=== PATIENT | female | born 1965 | race Caucasian/White ===

== ENCOUNTER 2016-12-02 20:45 | Emergency (ER) | payer OTHER, BC ==
[~2016-12-02] VITALS: Ht 154.9 cm; Wt 96.0 kg
[~2016-12-02 20:45] MED LIST: HYDRTAB8 PO; LEVO750T2 PO; METO1TAB54 PO; NAPR1TAB9 PO; OXYC1TAB3 PO
[2016-12-02 20:53] VITALS: Ht 154.9 cm; Wt 96.0 kg
[2016-12-02] MEDS ORDERED: MELO7.5T5 PO (21:21)
[2016-12-02] MEDS ORDERED: CLON0.5T3 PO (21:21)
[2016-12-02] MEDS ORDERED: TRAM-10 PO (21:21)
[2016-12-02] MEDS ORDERED: OXYCODONE HCL IR 5 MG TAB (IMMEDIATE RELEASE) PO STA (21:23)
[2016-12-02] MEDS ORDERED: OXYCODONE IR HOME PACK PO ONE (21:30)
--- NOTE | 2016-12-02 22:06 | DIAGNOSTIC IMAGING REPORT ---
LEFT KNEE 3 VIEWS CLINICAL HISTORY: Fall with left knee pain. FINDINGS: AP, crosstable lateral, and sunrise views of left knee are obtained. No prior studies are available for comparison at the time of dictation. The skeletal structures are well mineralized. No fracture is seen. There are small medial marginal osteophytes. The joint spaces of the knee are well-maintained. There is no large joint effusion. The overlying soft tissues are within normal limits. IMPRESSION: Unremarkable radiographic assessment of the left knee. Electronically signed by: Dhiraj Cano M.D. 12/02/2016 10:04 PM Dictated Date/Time: 12/02/2016 10:03 PM
[2016-12-02] MEDS ORDERED: OXYC1TAB3 PO (22:14)
--- NOTE | 2016-12-02 22:15 | EMERGENCY ROOM VISIT NOTE ---
ED Visit Note First contact with patient: 21:02 CHIEF COMPLAINT: Fall on her left knee this evening HISTORY OF PRESENT ILLNESS: Patient is a 51-year-old white female who presents emergency department for evaluation of left knee pain. Patient relates that she slipped on 11/09, injuring the left knee. She was recently evaluated by orthopedics and had an MRI and diagnosed with an MCL tear. She has been wearing a hinged knee brace. She was prescribed tramadol but she states that this has not been helping. She was placed on restrictions at work. Today, patient reports that she was getting out of her vehicle at home when her left knee buckled and she fell, landing on her flexed left knee. She had immediate onset of pain and is unable to bear weight on the leg. She called orthopedics who recommended that she get an x-ray. She went to an urgent care center, and was directed to the emergency department for care due to pain management. She presently rates her pain a 10/10. She states that it is deep in the center of her knee. Pain is worse with movement and attempts at weightbearing. She has had ice on the knee since the injury. REVIEW OF SYSTEMS: Review of systems as per HPI. All other systems reviewed were negative. At least 6 systems reviewed. PMH: Electronic medical records are reviewed and summarized as above/below. See Problem List. SOCIAL HISTORY: Patient lives at home with her . She does not smoke drink alcohol socially. PHYSICAL EXAM: Vital Signs: Reviewed Nurse's notes. MENTAL STATUS: Patient is a 51-year-old white female who is awake and alert and seated in a wheelchair in moderate distress due to her knee pain. KNEE: Examination of the left knee does not note any significant soft tissue swelling. Skin is intact without abrasions or bruising. She has tenderness to palpation along the medial aspect of the knee and over the medial joint line. No significant knee joint effusion is palpable. She is able to extend fully and flex greater than 90. EMERGENCY DEPARTMENT COURSE: Patient was medicated with oxycodone 10 mg orally. X-rays of the left knee were obtained and did not note acute fracture. The patient was fitted with a walker. She was given oxycodone to use for pain. She was encouraged to follow-up with her orthopedic surgeon for further care and evaluation of her ongoing knee injury, in the setting of the ligamentous injury now with a fall on the knee. She was discharged home with her mother driving. Differential diagnosis includes fracture, contusion, sprain, dislocation, meniscal or ligamentous injury, among others. LEFT KNEE 3 VIEWS CLINICAL HISTORY: Fall with left knee pain. FINDINGS: AP, crosstable lateral, and sunrise views of left knee are obtained. No prior studies are available for comparison at the time of dictation. The skeletal structures are well mineralized. No fracture is seen. There are small medial marginal osteophytes. The joint spaces of the knee are well-maintained. There is no large joint effusion. The overlying soft tissues are within normal limits. IMPRESSION: Unremarkable radiographic assessment of the left knee. Problem List Surgical Problems: (1) History of lumbar laminectomy Status: Resolved Current/Historical Medications Scheduled Meloxicam (Mobic), 7.5 MG PO DAILY Naproxen (Aleve), 440 MG PO QD@08 Scheduled PRN Clonazepam (Klonopin), 0.5 MG PO DAILY PRN for Anxiety/Agitation Oxycodone Ir (Roxicodone Ir), 1-2 TAB PO Q4H PRN for Severe Pain Tramadol (Ultram), 50 MG PO Q4H PRN for Pain Allergies Coded Allergies: No Known Allergies (Unverified , 12/02/16) Vital Signs Date Time Temp Pulse Resp B/P Pulse Ox O2 Delivery O2 Flow Rate FiO2 12/02/16 22:23 36.6 71 18 132/89 97 12/02/16 22:22 71 18 132/89 97 Room Air 12/02/16 20:53 36.6 71 18 149/92 97 Room Air Medications Administered Medications (Trade) Dose Ordered Sig/Yarely Route Start Time Stop Time Status Last Admin Dose Admin Oxycodone HCl (Roxicodone Immediate Rel Tab) 10 mg NOW STAT PO 12/02/16 21:23 12/02/16 21:24 DC 12/02/16 21:39 10 MG Oxycodone HCl (Roxicodone Immediate Rel 5MG Home Pack) 1 homepack UD ONCE PO 12/02/16 21:30 12/02/16 21:31 DC 12/02/16 21:40 1 HOMEPACK Departure Information Impression Primary Impression: Left knee pain Prescriptions Oxycodone Ir (Roxicodone Ir) 5 Mg Tab 1-2 TAB PO Q4H Y for Severe Pain, #25 TAB For Initial Treatment Prov: Ange Herrmann PA 12/02/16 Referrals Marc Garza M.D. (PCP) Patient Instructions My [facility] Additional Instructions DO NOT drive, drink alcohol, operate machinery, or perform dangerous activities today. You were given medications in the ER that can affect your ability to safely function or operate a vehicle. Oxycodone (OxyIR) 5mg: Take 1-2 pills every four hours for breakthrough pain. Avoid alcohol, operating machinery or dangerous equipment, working on ladders or roofs, DRIVING, or situations where being under the influence may be dangerous. It is recommended to use an gacg-mmy-slyhnfx stool softener such as Colace, 100mg twice daily while taking this medication to avoid constipation. Ibuprofen(Motrin, Advil) may be used for fever or pain. Use 600mg every six hours as needed. Take with food. Avoid using more than 2400mg in a 24 hour period. Do not use 2400mg per day for more than three consecutive days without physician direction. Prolonged inappropriate use can lead to stomach upset or ulcers. This medication can be taken if you need to drive, work, or perform activities which may be dangerous when taking narcotic pain medication. (AND/OR) Acetaminophen(Tylenol) may be used for fever or pain. Use 1000mg every six hours as needed. Avoid using more than 3000mg in a 24 hour period. This medication can be taken if you need to drive, work, or perform activities which may be dangerous when taking narcotic pain medication. Ice compresses for 20 minutes at a time four times daily for 2-3 days. Use the walker as instructed. Rest and elevate your injury. Continue current medications. Return to the ER immediately for any numbness, tingling, severe pain, extreme swelling in the extremity or as needed. Follow-up with Dr. Sierra next week.
[2016-12-02 22:23] VITALS: BP 132/89; PULSE 71; TEMP 36.6; O2SAT 97
[2017-03-22] MEDS ORDERED: ACET5TAB2 PO (11:32)
[2017-03-22] MEDS ORDERED: DICL-201 PO (11:32)
[2017-03-28] MEDS ORDERED: TRAM-10 PO (10:46)
== END 2016-12-02 22:34 | disposition home or self-care (01) ==
LOC: C.EDB 20:46 → C.EDD 22:34
DX: M25.562 Pain in left knee (principal); W19.XXXA Unspecified fall, initial encounter

== ENCOUNTER → 2016-12-08 | Outpatient (CLI) | payer OTHER, BC ==
[~2016-12-08] MED LIST changes: +ACET5TAB2 PO; +CLON0.5T3 PO; +DICL-201 PO; -HYDRTAB8 PO; -LEVO750T2 PO; +MELO7.5T5 PO; -METO1TAB54 PO; +TRAM-10 PO
--- NOTE | 2016-12-08 17:34 | DIAGNOSTIC IMAGING REPORT ---
LEFT KNEE MRI HISTORY: Left medial knee pain. COMPARISON STUDY: Left knee 12/02/2016. TECHNIQUE: Multiplanar multisequence MRI of the left knee was performed according to standard department protocol without the use of contrast. FINDINGS: Menisci: The lateral meniscus is intact. Abnormal signal within the body and posterior horn of the medial meniscus which does not clearly extend to the articular surface. Therefore, this favors degeneration. However, there is a complex tear at the posterior root of the medial meniscus. This is best seen on coronal image 20. Ligaments: The anterior and posterior cruciate ligaments are intact. The medial and lateral collateral ligaments are normal in appearance. Extensor mechanism: The quadriceps tendon and patellar ligament are intact. Articular cartilage and bone: No fracture or dislocation. Mild/moderate cartilage thinning/irregularity at the trochlea. Remaining cartilage spaces are maintained. Joint effusion: None. Soft tissues: Mild subcutaneous edema. Tiny popliteal cyst. IMPRESSION: 1. Complex tear at the posterior root of the medial meniscus. Abnormal signal within the body and posterior horn of the medial meniscus which does not clearly extend to the articular surface. Therefore, this favors degeneration rather than a tear. 2. Mild to moderate cartilage thinning/irregularity at the trochlea. Electronically signed by: Jose Snow M.D. 12/08/2016 5:32 PM Dictated Date/Time: 12/08/2016 5:29 PM
== END | disposition home or self-care (01) ==
LOC: C.MRIBC 16:13
PROVIDERS: ATTEND Orthopaedic Surgery
DX: M25.562 Pain in left knee (principal); S83.232A Complex tear of medial meniscus, current injury, left knee, initial encounter; X58.XXXA Exposure to other specified factors, initial encounter; M24.10 Other articular cartilage disorders, unspecified site

== ENCOUNTER → 2017-02-16 | Outpatient (CLI) | payer OTHER, BC ==
--- NOTE | 2017-02-16 11:15 | DIAGNOSTIC IMAGING REPORT ---
MRI left knee LEFT LOWER EXT JOINT WITHOUT CLINICAL HISTORY: LEFT KNEE PAIN pain TECHNIQUE: MRI multi axial acquisition COMPARISON STUDY: 12/16/2016 FINDINGS: There is no evidence for an interval operative procedure. There is a slight increase in edema surrounding the medial to lesser extent lateral compartments. The tear appears described posterior horn medial meniscus now shows apical truncation. A small loose body is present. Continued be a component of matrix deterioration of the meniscal substance. The lateral meniscus remains unremarkable in overall configuration. The cruciate ligaments are intact. There is at least a small partial tear of the medial collateral ligament complex. There is a component of mild chondromalacia patella. This is similar compared to the prior study. No significant loss of articular services present. There is moderate degenerative maceration of the meniscal matrix. The IMPRESSION: 1. Persistent tear posterior horn medial meniscus now showing evidence for apical truncation and a small periapical loose body. The bulk of the intrameniscal tear of the posterior horn medial meniscus is improved 2. Mild increase in surrounding soft tissue edematous change. 3. Small partial tear and/or sprain medial collateral ligament 4. Study otherwise remains unremarkable. Electronically signed by: Garrick Maravilla M.D. 02/16/2017 11:14 AM Dictated Date/Time: 02/16/2017 11:06 AM
== END | disposition home or self-care (01) ==
LOC: C.MRIBC 09:26
PROVIDERS: ATTEND Orthopaedic Surgery
DX: M23.42 Loose body in knee, left knee (principal); S83.412A Sprain of medial collateral ligament of left knee, initial encounter; S83.242A Other tear of medial meniscus, current injury, left knee, initial encounter; X58.XXXA Exposure to other specified factors, initial encounter

== ENCOUNTER → 2017-03-20 | Outpatient (CLI) | payer OTHER, BC | END | disposition home or self-care (01) | LOC: C.CPL 16:47 | PROVIDERS: ATTEND Orthopaedic Surgery | DX: Z01.810 Encounter for preprocedural cardiovascular examination (principal); S83.207A Unspecified tear of unspecified meniscus, current injury, left knee, initial encounter; X58.XXXA Exposure to other specified factors, initial encounter ==

== ENCOUNTER → 2017-03-28 | Day surgery (SDC) | payer OTHER, BC ==
[2017-03-22 11:32] VITALS: Ht 156.8 cm; Wt 90.9 kg
[~2017-03-28] VITALS: Ht 156.8 cm; Wt 90.9 kg
[~2017-03-28] MED LIST changes: +ATROPINE SULFATE 0.1 MG/ML 5ML SYR IV PRN; +BUPIVACAINE 0.5 % 5 MG/1 ML MPF 30ML VIAL ONE; +CEFAZOLIN 2000 MG/60 ML D5W IV SCH; +ESMOLOL HCL 10 MG/ML 10 ML VIAL ONE; +EpHEDrine SULFATE INJ 50 MG/ML AMP IV PRN; +EpINEphrine INJ 1MG/ML AMP 1 MG/ML AMP ONE; +FENTANYL CITRATE INJ 50 MCG/1 ML 2 ML VIAL ONE; +FLUMAZENIL 0.1 MG/1 ML 10 ML VIAL IV PRN; +HYDROmorphone INJ 0.5 MG/0.5 ML SYR ONE; +HYDROmorphone INJ 1 MG/ML SYR IV ONE; +HYDROmorphone INJ 1 MG/ML SYR ONE; +KETOROLAC TROMETHAMINE 30 MG/ML VIAL ONE; +LABETALOL HCL IV 5 MG/ML 20ML IV PRN; +LIDOCAINE HCL 2% 2 ML VIAL (20MG/ML) ONE; -MELO7.5T5 PO; +MEPERIDINE HCL 50 MG/ML CARP IV ONE; +MIDAZOLAM HCL 1 MG/ML 2ML VIAL ONE; +NALOXONE HCL 0.4 MG/1 ML VIAL/CARP IV PRN; -NAPR1TAB9 PO; +NURSING VERBAL MED ORDER ONE; +ONDANSETRON INJ 2 MG/ML 2 ML VIAL IV PRN; +ONDANSETRON INJ 2 MG/ML 2 ML VIAL ONE; -OXYC1TAB3 PO; +OXYCODONE/ACETAMINOPHEN 5-325 TAB PO PRN; +PHENYLEPHRINE 100MCG/ML 5ML SYR IV PRN; +PROPOFOL IV EMULSION 10 MG/ML 20 ML VIAL IV ONE; +ROPIVACAINE 0.5% 5 MG/ML 30 ML VIAL ONE; +SODIUM CHLORIDE 0.9% 1000ML 1,000 ML IV SCH
--- NOTE | 2017-03-28 08:59 | History & Physical Bridge - SC ---
H&P Re-Evaluation Bridge Note: I have examined the patient, reviewed the History & Physical and in the interval since the performance of the History & Physical I have noted the following changes of clinical significance: No changes noted
[2017-03-28] MEDS: LACTATED RINGER'S 1000ML 1,000 ML IV SCH ×2 (09:05→13:14)
--- NOTE | 2017-03-28 10:32 | [facility] Post Operative Brief Note ---
Immediate Operative Summary Operative Date Mar 28, 2017. Pre-Operative Diagnosis Left Current Tear Medial Cartilageand Meniscus Post-Operative Diagnosis same Procedure(s) Performed Left Knee Arthroscopy, Partial Medial Meniscectomy, Chondroplasty Medial Femoral Condyle Surgeon Dr. Shayna Sierra Pest Control Technician Surgeon(s) Nader Aguilera PA-C Estimated Blood Loss 5cc Findings DJD MFC GRADE II-III Specimens none Anesthesia LMA
--- NOTE | 2017-03-28 10:49 | Discharge Instructions-SurgCtr ---
Discharge Instructions Date of Service Mar 28, 2017. Visit Reason for Visit: Left Current Tear Medial Cartilage &/Or Meniscus Discharge Discharge Diagnosis / Problem: SAME ABOVE Discharge Goals Goal(s): Decrease discomfort, Improve function Activity Recommendations Activity Limitations: as noted below Lifting Limitations: gradually increase as tolerated Exercise/Sports Limitations: until after follow-up appointment Shower/Bathe: tomorrow Anesthesia . Post Anesthesia Instructions: If you have had General Anesthesia or IV Sedation: * Do not drive today. * Resume driving when surgeon permits. * Do not make important decisions or sign legal documents today. * Call surgeon for: 1. Temperature elevations greater than 101 degrees F. 2. Uncontrollable pain. 3. Excessive bleeding. 4. Persistent nausea and vomiting. 5. Medication intolerance (nausea, vomiting or rash). * For nausea and vomiting use only clear liquids such as: tea, soda, bouillon until nausea subsides, then gradually increase diet as tolerated. * If you have any concerns or questions, call your surgeon's office. If physician is unavailable and it is an emergency, call 911 or go to the nearest emergency room. . Instructions / Follow-Up Instructions / Follow-Up MEDICATIONS: * Resume previous medications unless instructed otherwise by your surgeon. * Always take pain medication on a full stomach or with food to avoid upset stomach. * Do not drink alcohol or drive while taking narcotics. * Ibuprofen or Tylenol may be taken if narcotic not needed. SPECIAL CARE INSTRUCTIONS: __ None _X_ Keep extremity elevated and iced x 48 hours; apply ice 20-30 minutes 8-10 times/day. May remove at night. __ Crutches __ May discard when able __ Brace/Post-op shoe __ 24 hrs/day __ Remove at night _X_ Dressing __ Maintain until seen in office, may shower with plastic over site _X_ Remove dressings in 24-48 hours and then may shower _X_ Cover incisions with band-aids after showering __ Do not remove steri-strips Call physician if chills or temperature rises above 102 degrees or pain unrelieved by prescribed pain medications. Office [phone] Diet Recommendations Home Diet: resume previous diet Procedures Procedures Performed: Left Knee Arthroscopy, Partial Medial Meniscectomy, Chondroplasty Medial Femoral Condyle Pending Studies Studies pending at discharge: no Medical Emergencies . Who to Call and When: Medical Emergencies: If at any time you feel your situation is an emergency, please call 911 immediately. . Non-Emergent Contact Non-Emergency issues call your: Primary Care Provider . . "Provider Documentation" section prepared by Nader Aguilera. .
[2017-03-28] MEDS: FENTANYL CITRATE INJ 50 MCG/1 ML 2 ML VIAL IV PRN ×3 (11:00→11:16)
[2017-03-28] MEDS: HYDROmorphone INJ 2 MG/ML SYR/VIAL IV PRN ×2 (11:24→12:29)
[2017-03-28] MEDS: MEPERIDINE HCL 25 MG/ML CARP IV PRN ×2 (11:38→11:44)
--- NOTE | 2017-03-28 12:37 | OPERATIVE REPORT ---
DATE OF OPERATION: 03/28/2017 PREOPERATIVE DIAGNOSES: 1. Medial meniscus tear left knee. 2. Degenerative joint disease grade 2-3 medial femoral condyle. POSTOPERATIVE DIAGNOSIS: Same with diffuse synovitis, cyst intercondylar notch left knee and plica bands patellofemoral joint. PROCEDURES: 1. Left knee arthroscopy. 2. Partial medial meniscectomy. 3. Chondroplasty medial femoral condyle. 4. Removal intercondylar notch cyst and plica band patellofemoral joint. . SURGEON: Dr. Sierra. SENIOR WEB ANALYST: Nader Aguilera PA-C. ANESTHESIOLOGIST: Dr. Corrales. ANESTHESIA: LMA. DRAINS: None. COMPLICATIONS: None. CONDITION: The patient tolerated the procedure well and returned to the recovery room in apparent satisfactory condition. INDICATIONS FOR SURGERY: Yasmine is a 51-year-old female who has had a painful left knee secondary to workers comp injury. We felt at this time we had 2 issues, meniscus tear and also DJD of her knee. Went over treatment options and elected to go ahead and proceed with knee arthroscopy to address meniscal pathology realizing we cannot fix arthritis with an arthroscope see if we could lessen her pain. There are no guarantees of surgery. Procedure, expected outcomes, side effects, and risks were all explained in detail. OPERATION AND FINDINGS: PROCEDURE: The patient was taken to the OR at which time she was placed supine on the operating table and put to sleep by the anesthesia department. Examination of left knee was performed. Ligamentous lucas it was stable. Went ahead and prepped and draped in usual sterile fashion. Began arthroscopic examination in the anteromedial and anterolateral portals after the thigh tourniquet was placed up to 300 mmHg. We had a lot of venous backbleeding because of the size of her leg. We put the tourniquet up to 350, increased the pressure and got better visualization of the knee joint. You could see she had degenerative changes of the femoral condyle, actually a little bit of the tibial plateau. The femoral condyle had lesion probably the size of a quarter or little bit bigger, grade 2-3 degenerative changes. Chondroplasty was done here to smooth the surface out. We found a posterior horn tear just on the inner rim. The posterior root of the meniscus looked good. I probed that and at that point I think it healed from before. She had just a smaller rim tear that we trimmed up. We did find a cyst in intercondylar notch, this was removed. The lateral compartment, ACL were all in good shape, no abnormalities there. The patellofemoral joint we found some synovitis. We also found a plica band which we removed. The articular surface of the patella and the distal femur and trochlear groove were fine. The knee then was copiously irrigated. All cannulas were removed. Portals closed with 4-0 nylon sutures. 30 mL of ropivacaine, 10 mg of Toradol, and 1 mL of epinephrine was placed in the knee joint. Placed a sterile dressing of Xeroform, 4 x 4, ABD, Sof-Rol, and Leon bandage and returned back to recovery room in apparent satisfactory condition. SURGICAL FINDINGS: Included: 1. A posterior horn inner rim tear of the meniscus. 2. Grade 2-3 degenerative changes medial femoral condyle with some synovitis and plica band. I attest to the content of the Intraoperative Record and any orders documented therein. Any exceptions are noted below. TWIN
[2017-03-28 13:20] VITALS: TEMP 37.3
--- NOTE | 2017-03-28 13:28 | Anesthesia Progress Nt - [facility] ---
Anesthesia Post Op Note Date & Time Mar 28, 2017 at 13:27 Vital Signs Pain Intensity: 3 Vital Signs Past 12 Hours Date Time Temp Pulse Resp B/P (MAP) Pulse Ox O2 Delivery O2 Flow Rate FiO2 03/28/17 13:20 37.3 88 16 150/89 (109) 97 Room Air 03/28/17 13:12 92 6 03/28/17 13:12 92 6 94 03/28/17 13:11 122/67 03/28/17 13:09 89 12 03/28/17 13:09 88 12 95 03/28/17 13:06 125/77 03/28/17 13:05 37.1 83 20 125/77 99 Room Air 03/28/17 13:04 94 19 100 03/28/17 13:04 94 19 03/28/17 13:01 119/72 03/28/17 12:59 76 10 03/28/17 12:59 78 10 100 03/28/17 12:56 127/68 03/28/17 12:54 79 6 03/28/17 12:54 76 6 100 03/28/17 12:51 129/73 03/28/17 12:49 88 14 03/28/17 12:49 88 14 100 03/28/17 12:45 121/84 03/28/17 12:44 90 11 100 03/28/17 12:44 91 11 03/28/17 12:41 115/89 03/28/17 12:39 86 9 03/28/17 12:39 83 9 100 03/28/17 12:36 129/93 03/28/17 12:34 91 15 03/28/17 12:34 90 15 100 03/28/17 12:31 116/88 03/28/17 12:29 86 12 100 03/28/17 12:29 85 12 03/28/17 12:26 138/81 03/28/17 12:24 88 12 03/28/17 12:24 88 12 100 03/28/17 12:20 99/87 03/28/17 12:19 75 11 99 03/28/17 12:19 81 11 03/28/17 12:18 96 14 03/28/17 12:18 93 14 100 03/28/17 12:16 104/68 03/28/17 12:13 98 13 100 03/28/17 12:13 100 13 03/28/17 12:12 102 14 03/28/17 12:12 103 14 100 03/28/17 12:11 121/102 03/28/17 12:07 98 10 03/28/17 12:07 100 10 100 03/28/17 12:06 118/74 03/28/17 12:02 91 11 100 03/28/17 12:02 89 11 03/28/17 12:01 128/76 03/28/17 11:57 87 17 03/28/17 11:57 89 17 100 03/28/17 11:56 144/72 03/28/17 11:54 94 15 100 03/28/17 11:54 92 15 03/28/17 11:53 88 14 100 03/28/17 11:53 91 14 03/28/17 11:52 90 9 100 03/28/17 11:52 91 9 03/28/17 11:51 112/72 03/28/17 11:49 135/117 03/28/17 11:48 88 12 100 03/28/17 11:48 86 12 03/28/17 11:46 109/79 03/28/17 11:43 88 14 03/28/17 11:43 87 14 100 03/28/17 11:41 132/115 03/28/17 11:38 81 14 100 03/28/17 11:38 80 14 03/28/17 11:36 137/82 03/28/17 11:33 84 14 03/28/17 11:33 84 14 100 03/28/17 11:32 92 16 100 03/28/17 11:32 92 16 03/28/17 11:31 145/98 03/28/17 11:27 84 17 03/28/17 11:27 83 17 100 03/28/17 11:26 141/87 03/28/17 11:22 81 12 03/28/17 11:22 80 12 100 03/28/17 11:21 138/93 03/28/17 11:17 87 16 03/28/17 11:17 90 16 100 03/28/17 11:16 86 22 03/28/17 11:16 86 22 140/92 100 03/28/17 11:11 82 13 03/28/17 11:11 82 13 140/91 100 03/28/17 11:10 85 16 03/28/17 11:10 85 16 100 03/28/17 11:07 137/89 03/28/17 11:05 85 17 03/28/17 11:05 86 17 100 03/28/17 11:04 84 16 100 03/28/17 11:04 86 16 03/28/17 11:01 145/101 03/28/17 10:59 90 17 100 03/28/17 10:59 91 17 03/28/17 10:56 152/80 03/28/17 10:54 87 17 03/28/17 10:54 89 17 100 03/28/17 10:51 127/102 03/28/17 10:49 86 17 03/28/17 10:49 90 17 99 03/28/17 10:46 140/99 03/28/17 10:45 151/97 03/28/17 10:44 36.1 89 16 151/98 97 Mask 6 03/28/17 08:47 36.4 75 18 143/85 (104) 96 Room Air Notes Mental Status: alert / awake / arousable, participated in evaluation Pt Amnestic to Procedure: Yes Nausea / Vomiting: adequately controlled Pain: adequately controlled, improving with treatment Airway Patency, RR, SpO2: stable & adequate BP & HR: stable & adequate Hydration State: stable & adequate Anesthetic Complications: no major complications apparent The patient required a large amount of opioids in the PACU for pain control but she is feeling better now.
[2017-03-28 13:48] VITALS: BP 124/79; PULSE 77; O2SAT 96
== END | disposition home or self-care (01) ==
LOC: X.SURG 08:36
PROVIDERS: ATTEND Orthopaedic Surgery
DX: M23.221 Derangement of posterior horn of medial meniscus due to old tear or injury, right knee (principal); M17.12 Unilateral primary osteoarthritis, left knee